=== PATIENT | male | born 1945 | race Caucasian/White ===

== ENCOUNTER 2018-12-23 03:57 | Emergency (ER) | payer MEDICARE ==
[2018-12-23] MEDS ORDERED: Sodium Chloride 0.9% 10 ML Syringe FLUSH PRN (04:24)
[2018-12-23] MEDS ORDERED: Iopamidol 755 Mg/ML 100 ML Bottle IV SCH (04:30)
[2018-12-23] MEDS ORDERED: Sodium Chloride 0.9% 100 ML IV STA (04:31)
--- NOTE | 2018-12-23 05:22 | CRLCT ---
INDICATION: Chest pain, history of pulmonary embolus. TECHNIQUE: CT chest PE was acquired with 100 cc Isovue 370 intravenous contrast. COMPARISON: None. FINDINGS: Heart and vasculature: Contrast opacification of the pulmonary arterial tree is adequate. No sign of pulmonary embolism. Thoracic aorta is normal in caliber with atherosclerotic calcification. Prominent coronary atherosclerosis. No pericardial effusion. Lungs and pleural: Calcified granuloma left lower lobe. Centrilobular emphysema with the minimal interlobular septal thickening the periphery probably trace fibrosis versus hydrostatic changes. Minimal areas of discoid atelectasis. Trace endotracheal debris. Lymph nodes/mediastinum: No mediastinal, hilar, or axillary adenopathy. Thyroid gland is normal. Chest wall: No masses. Upper abdomen: Low-density left adrenal lesion measuring 2.7 centimeters and 9 Hounsfield units consistent with an adenoma. Bones: Unremarkable for age. IMPRESSION: 1. No evidence of pulmonary embolus. 2. Centrilobular emphysema. 3. Prominent coronary atherosclerosis. 4. Other incidental findings as noted above. Please note that all CT scans at this facility use dose modulation, iterative reconstruction, and/or weight-based dosing when appropriate to reduce radiation dose to as low as reasonably achievable. Dictated by Esau Couch MD @ Dec 23 2018 5:12AM Signed by Dr. Esau Couch @ Dec 23 2018 5:20AM
--- NOTE | 2018-12-23 06:26 | EDM.PDOC ---
ED HPI GENERAL MEDICAL PROBLEM - General Chief Complaint: Cardiovascular Problem Stated Complaint: BLOOD CLOT IN LUNG Time Seen by Provider: 12/23/18 04:15 Source of Information: Reports: Patient History Limitations: Reports: No Limitations - History of Present Illness INITIAL COMMENTS - FREE TEXT/NARRATIVE: This gentleman who is visiting from [place] comes in complaining of chest pain which he is certain is a pulmonary embolus. He's had 2 pulmonary emboli in the past and they felt just like this. The pain started yesterday and was substernal beneath the lower part of the sternum. He said that at rest it's about a 4 out of 10 but anytime he breathes deeply it's much more severe. Initially it was about a 10 out of 10. It's decreased now so that it's only about 8 out of 10 at its worst but again the severe pain is only when he inhales.. It never goes away completely however. It's about a 4 at rest. He feels just a little bit short of breath however. chest Pain Score (Numeric/FACES): 5 - Related Data Allergies Allergy/AdvReac Type Severity Reaction Status Date / Time No Known Allergies Allergy Verified 12/23/18 04:07 Home Meds: Home Meds Allopurinol [Zyloprim] 200 mg PO DAILY 12/23/18 [History] Rivaroxaban [Xarelto] 20 mg PO DAILY 12/23/18 [History] Past Medical History Cardiovascular History: Reports: Blood Clots/VTE/DVT Respiratory History: Reports: PE Musculoskeletal History: Reports: Arthritis, Gout Hematologic History: Reports: Anticoagulation Therapy Oncologic (Cancer) History: Reports: Squamous Cell Carcinoma, Other (See Below) Other Oncologic History: rare skin cancer - Past Surgical History GI Surgical History: Reports: Colonoscopy, Hernia, Inguinal Other Oncologic Surgeries/Procedures: multiple lymph nodes removed from right arm from skin cancer Social & Family History - Tobacco Use Smoking Status *Q: Current Every Day Smoker Years of Tobacco use: 55 Packs/Tins Daily: 1 - Caffeine Use Caffeine Use: Reports: Coffee, Soda - Alcohol Use Days Per Week of Alcohol Use: 7 Number of Drinks Per Day: 4 Total Drinks Per Week: 28 - Recreational Drug Use Recreational Drug Use: No ED ROS GENERAL - Review of Systems Review Of Systems: See Below Constitutional: Reports: No Symptoms HEENT: Reports: No Symptoms Respiratory: Reports: Shortness of Breath (mild), Pleuritic Chest Pain Cardiovascular: Reports: Chest Pain Endocrine: Reports: No Symptoms GI/Abdominal: Reports: No Symptoms : Reports: No Symptoms Musculoskeletal: Reports: No Symptoms Skin: Reports: No Symptoms Neurological: Reports: No Symptoms Psychiatric: Reports: No Symptoms ED EXAM, GENERAL - Physical Exam Exam: See Below Exam Limited By: No Limitations General Appearance: Alert, Thin Eye Exam: Bilateral Eye: Normal Inspection Throat/Mouth: Normal Inspection Head: Atraumatic Neck: Normal Inspection Respiratory/Chest: No Respiratory Distress, Lungs Clear Cardiovascular: Regular Rate, Rhythm, No Murmur GI/Abdominal: Soft, Non-Tender, Other (Negative Lion sign) Back Exam: Normal Inspection Extremities: Normal Inspection, Non-Tender, No Pedal Edema. No: Pedal Edema Neurological: Alert, Oriented, Normal Cognition Psychiatric: Normal Affect Skin Exam: Warm, Dry, Other (Very ruborous complexion but deeply tanned. Looks like a very heavy smoker) Course - Vital Signs Last Recorded V/S: Last Vital Signs Temp 36.8 C 12/23/18 04:07 Pulse 89 12/23/18 04:07 Resp 15 12/23/18 04:07 BP 155/75 H 12/23/18 04:07 Pulse Ox 97 12/23/18 04:07 - Orders/Labs/Meds Orders: Active Orders 24 hr Category Date Time Status EKG Documentation Completion [RC] ASDIRECTED Care 12/23/18 04:25 Active EKG Documentation Completion [RC] ASDIRECTED Care 12/23/18 05:39 Active TROPONIN I [CHEM] Urgent Lab 12/23/18 06:30 Ordered Iopamidol [Isovue-370 (76%)] Med 12/23/18 04:30 Active 100 ml IV . DIRECTED Sodium Chloride 0.9% [Saline Flush] Med 12/23/18 04:24 Active 10 ml FLUSH ASDIRECTED PRN Saline Lock Insert [OM.PC] Urgent Oth 12/23/18 04:24 Ordered EKG 12 Lead [EK] Routine Ther 12/23/18 05:39 Ordered EKG 12 Lead [EK] Urgent Ther 12/23/18 04:24 Ordered Medication Orders Iopamidol (Isovue-370 (76%)) 100 ml IV . DIRECTED RAS Last Admin: 12/23/18 04:45 Dose: 100 ml Sodium Chloride (Saline Flush) 10 ml FLUSH ASDIRECTED PRN PRN Reason: Keep Vein Open Last Admin: 12/23/18 05:07 Dose: 10 ml Labs: Laboratory Tests 12/23/18 12/23/18 Range/Units 04:40 04:40 WBC 9.9 (4.5-11.0) K/uL RBC 5.09 (4.30-5.90) M/uL Hgb 17.4 H (12.0-15.0) g/dL Hct 51.1 (40.0-54.0) % MCV 100 H (80-98) fL MCH 34 H (27-31) pg MCHC 34 (32-36) % Plt Count 108 L (150-400) K/uL Neut % (Auto) 72 H (36-66) % Lymph % (Auto) 15 L (24-44) % [place] % (Auto) 12 H (2-6) % Eos % (Auto) 0 L (2-4) % Baso % (Auto) 1 (0-1) % Sodium 137 L (140-148) mmol/L Potassium 4.3 (3.6-5.2) mmol/L Chloride 101 (100-108) mmol/L Carbon Dioxide 28 (21-32) mmol/L Anion Gap 12.3 (5.0-14.0) mmol/L BUN 15 (7-18) mg/dL Creatinine 1.0 (0.8-1.3) mg/dL Est Cr Clr Drug Dosing 62.20 mL/min Estimated GFR (MDRD) > 60 (>60) Glucose 99 (74-106) mg/dL Calcium 9.3 (8.5-10.1) mg/dL Total Bilirubin 0.7 (0.2-1.0) mg/dL AST 18 (15-37) U/L ALT 19 (12-78) U/L Alkaline Phosphatase 88 (46-116) U/L Troponin I < 0.017 (0.000-0.056) ng/mL Total Protein 7.3 (6.4-8.2) g/dL Albumin 3.1 L (3.4-5.0) g/dL Globulin 4.2 H (2.3-3.5) g/dL Albumin/Globulin Ratio 0.7 L (1.2-2.2) Meds: Medications Generic Name Dose Route Start Last Admin Trade Name Freq PRN Reason Stop Dose Admin Iopamidol 100 ml 12/23/18 04:30 12/23/18 04:45 Isovue-370 (76%) IV 100 ml . DIRECTED RAS Administration Sodium Chloride 10 ml 12/23/18 04:24 12/23/18 05:07 Saline Flush FLUSH 10 ml ASDIRECTED PRN Administration Keep Vein Open Discontinued Medications Generic Name Dose Route Start Last Admin Trade Name Freq PRN Reason Stop Dose Admin Sodium Chloride 100 mls @ 4 mls/sec 12/23/18 04:31 12/23/18 04:45 Normal Saline IV 12/23/18 04:32 4 mls/sec ASDIRECTED STA Administration - Radiology Interpretation Free Text/Narrative:: Chest CT shows no evidence of pulmonary embolus - Re-Assessments/Exams Free Text/Narrative Re-Assessment/Exam: 12/23/18 06:28 EKGs #1 shows sinus rhythm at 79 bpm possibly some left ventricular hypertrophy possibly some ST elevation in the anterior leads according to the computer readout however I don't see anything that looks like ST elevation. EKG #2 seems almost identical to the first one. Patient's troponin is negative. A second troponin is being drawn at this time. We had another long discussion about his pain and it definitely sounds like it is a pleuritic chest pain. 12/23/18 07:22 pt had a second trop and this was normal. His pleuritic pain is much better. Departure - Departure Time of Disposition: 07:23 Disposition: Home, Self-Care 01 Condition: Fair Clinical Impression: Chest wall pain, History of pulmonary embolism Referrals: PCP,None [Primary Care Provider] - Care Plan Goals: rtc if chest pain should get alot worse. continue same meds. - My Orders Last 24 Hours: My Active Orders 12/23/18 04:24 Sodium Chloride 0.9% [Saline Flush] 10 ml FLUSH ASDIRECTED PRN Saline Lock Insert [OM.PC] Urgent EKG 12 Lead [EK] Urgent 12/23/18 04:25 EKG Documentation Completion [RC] ASDIRECTED 12/23/18 04:30 Iopamidol [Isovue-370 (76%)] 100 ml IV . DIRECTED 12/23/18 05:39 EKG Documentation Completion [RC] ASDIRECTED EKG 12 Lead [EK] Routine 12/23/18 06:30 TROPONIN I [CHEM] Urgent - Assessment/Plan Last 24 Hours: My Active Orders 12/23/18 04:24 Sodium Chloride 0.9% [Saline Flush] 10 ml FLUSH ASDIRECTED PRN Saline Lock Insert [OM.PC] Urgent EKG 12 Lead [EK] Urgent 12/23/18 04:25 EKG Documentation Completion [RC] ASDIRECTED 12/23/18 04:30 Iopamidol [Isovue-370 (76%)] 100 ml IV . DIRECTED 12/23/18 05:39 EKG Documentation Completion [RC] ASDIRECTED EKG 12 Lead [EK] Routine 12/23/18 06:30 TROPONIN I [CHEM] Urgent
== END 2018-12-23 07:31 | disposition home or self-care (01) ==
LOC: JP.ED 03:57
DX: R07.89 Other chest pain (principal); M10.9 Gout, unspecified; M19.90 Unspecified osteoarthritis, unspecified site; F17.210 Nicotine dependence, cigarettes, uncomplicated; Z86.711 Personal history of pulmonary embolism; Z86.718 Personal history of other venous thrombosis and embolism
CPT/HCPCS: 36415; 71275; 80053; 84484; 85025; 93005; 93010; 99285; J7030; Q9967; 99284

== ENCOUNTER 2021-12-02 22:59 | Emergency (ER) | payer OTHER, MEDICARE | END 2021-12-02 23:45 | disposition home or self-care (01) | LOC: JP.ED 22:59 | DX: S61.411A Laceration without foreign body of right hand, initial encounter (principal); F17.210 Nicotine dependence, cigarettes, uncomplicated; M10.9 Gout, unspecified; Z79.899 Other long term (current) drug therapy; Z79.01 Long term (current) use of anticoagulants; W26.8XXA Contact with other sharp object(s), not elsewhere classified, initial encounter | CPT/HCPCS: 12001; 99281; 99282-25 ==

== ENCOUNTER 2022-01-28 15:05 | Emergency (ER) | payer OTHER, MEDICARE ==
[2022-01-28] MEDS ORDERED: Sodium Chloride 0.9% 1,000 ML IV SCH (17:30)
[2022-01-28] MEDS ORDERED: Propofol 200 MG/20 ML SDV IVPUSH ONE (17:58)
== END 2022-01-28 19:14 | disposition home or self-care (01) ==
LOC: JP.ED 15:05
DX: S81.811A Laceration without foreign body, right lower leg, initial encounter (principal); I48.3 Typical atrial flutter; M10.9 Gout, unspecified; F17.210 Nicotine dependence, cigarettes, uncomplicated; Z79.82 Long term (current) use of aspirin; Z79.02 Long term (current) use of antithrombotics/antiplatelets; Z79.899 Other long term (current) drug therapy; W26.8XXA Contact with other sharp object(s), not elsewhere classified, initial encounter
CPT/HCPCS: 36415; 80048; 85025; 92960; 93005; 96360; 99283; J2704; J7030

== ENCOUNTER 2022-12-07 15:22 | Emergency (ER) | payer MEDICARE ==
[2022-12-07] MEDS ORDERED: HYDROmorphone 1 MG/ML Syringe IM ONE (16:39)
[2022-12-07 16:52] LABS: BASOPHILS ABSOLUTE AUTO 0.07 K/uL (0.00-0.10); BASOPHILS PERCENT AUTO 0.7 % (0.1-1.3); EOSINOPHILS ABSOLUTE AUTO 0.48 K/uL (0.00-0.40); EOSINOPHILS PERCENT AUTO 4.6 % (0.0-5.4); HEMATOCRIT 21.4 % (38.4-49.7); IMMATURE GRAN ABSOLUTE AUTO 0.04 K/uL (0.00-0.23); IMMATURE GRAN PERCENT AUTO 0.4 % (0.0-0.7); LYMPHOCYTES ABSOLUTE AUTO 2.57 K/uL (0.8-3.3); LYMPHOCYTES PERCENT AUTO 24.8 % (11.4-47.7); MEAN CORPUSCULAR HEMOGLOBIN 24.4 pg (31.6-35.5); MEAN CORPUSCULAR HGB CONC 28.5 g/dL (31.6-35.5); MEAN CORPUSCULAR VOLUME 85.6 fL (81.4-99.0); MONOCYTES ABSOLUTE AUTO 1.15 K/uL (0.20-0.90); MONOCYTES PERCENT AUTO 11.1 % (3.3-12.6); NEUTROPHILS ABSOLUTE AUTO 6.04 K/uL (1.0-7.6); NEUTROPHILS PERCENT AUTO 58.4 % (40.0-78.1); PLATELET COUNT,PLT 156 K/uL (130-375); WHITE BLOOD CELL COUNT,WBC 10.4 K/uL (3.2-11.0)
[2022-12-07 16:57] LABS: HEMOGLOBIN 6.1 g/dL (12.9-16.9)
[2022-12-07 17:12] LABS: INR 1.1; PROTHROMBIN TIME 10.9 sec (9.2-10.6)
== END 2022-12-07 18:22 ==
LOC: JP.ED 15:22
DX: M79.81 Nontraumatic hematoma of soft tissue (principal); D64.9 Anemia, unspecified; I48.91 Unspecified atrial fibrillation; Z72.0 Tobacco use; Z79.82 Long term (current) use of aspirin; Z79.899 Other long term (current) drug therapy
CPT/HCPCS: 36415; 85025; 85610; 96372; 99284; J1170